=== PATIENT | female | born 2000 | race African-American/Black ===

== ENCOUNTER 2021-09-06 14:55 | Outpatient (REF) | payer MEDICAID, SELFPAY ==
[2021-09-07 14:21] LABS: CT PCR DETECTED (Not Detect.); NG PCR NOT DETECTED (Not Detect.)
[2021-09-08 10:00] LABS: BV Int Neg Control Negative (Negative); BV Int Pos Control Positive (Positive)
== END 2021-09-06 14:56 | disposition home or self-care (01) ==
LOC: HO.LAB 14:55
PROVIDERS: Visit Provider Advanced Practice Midwife
DX: Z01.419 Encounter for gynecological examination (general) (routine) without abnormal findings (principal); Z20.2 Contact with and (suspected) exposure to infections with a predominantly sexual mode of transmission; Z98.51 Tubal ligation status
CPT/HCPCS: 87480; 87491; 87510; 87591; 87660; 88142

== ENCOUNTER 2023-01-25 09:26 | Emergency (ER) | payer MEDICAID, SELFPAY ==
--- NOTE | ~2023-01-25 | XR_ITS ---
EXAMINATION: XR SHOULDER, RIGHT CLINICAL INFORMATION: Right shoulder pain. COMPARISON: None available. TECHNIQUE: AP external rotation, Grashey, scapular Y, and axillary views of the right shoulder. FINDINGS: Glenohumeral and acromioclavicular alignment is anatomic with normal joint space. No displaced fracture or dislocation. No abnormal soft tissue calcifications. XR/XR shoulder RT min 2V IMPRESSION: No acute abnormality.
[2023-01-25 10:08] VITALS: BP 102/69; PULSE 51; RESP 18; TEMP 35.9; O2SAT 100; BMI 24.2
--- NOTE | 2023-01-25 11:33 | ED.EXTPRO ---
HPI - Extremity Problem General Chief complaint: Extremity Injury, Upper Stated complaint: body aches all over back pain Time Seen by Provider: 01/25/23 11:30 Source: patient Limitations: no limitations History of Present Illness HPI Narrative: Patient presents ER complaining of atraumatic right shoulder pain. Patient states she does a lot of repetitive work at her job. Pain is located the anterior aspect of the right shoulder 8 increases with range of motion and palpation. Patient denies any recent blunt trauma or falls. Symptoms mild to moderate. No other complaints at this time. Patient denies chest pain shortness of breath fever chills Related Data Previous Rx's Medication Instructions Recorded azithromycin 500 mg tablet 1,000 mg PO ONCE 0 days #2 tabs 09/08/21 metronidazole 500 mg tablet 500 mg PO BID 7 days #14 tabs 09/16/21 ibuprofen 600 mg tablet 600 mg PO TID PRN pain #20 tabs 01/25/23 methocarbamol 750 mg tablet 750 mg PO TID PRN muscle spasm #10 01/25/23 tabs Allergies Allergy/AdvReac Type Severity Reaction Status Date / Time No Known Allergies Allergy Verified 09/06/21 15:13 Review of Systems Review of Systems: General: No fever, no chills Cardiovascular: No chest pain Respiratory: No dyspnea Muscle skeletal: Right shoulder pain GI: no nausea vomiting, no diarrhea Skin: No rash, no ecchymosis Immunology: No immunocompromised Hematology: No bleeding, no bruising PMFSH Past Medical History Attestation statement: The following information was validated with the patient. Surgical History History of bilateral tubal ligation Social History Social History Alcohol intake: never Patient Tobacco Use Status: Never used Tobacco Advance Directives: No Gender identity: Female Physical Exam Vital Signs: Vital Signs: Last Vital Signs Temp 96.7 F L 01/25/23 10:08 Pulse 51 01/25/23 10:08 Resp 18 01/25/23 10:08 BP 102/69 01/25/23 10:08 Pulse Ox 100 01/25/23 10:08 BMI result Body Mass Index 24.2 General appearance: Awake, alert, cooperative, in no acute distress Skin: Warm, dry, no rash Eyes: PERRL, EOMI, no icterus ENT: Oropharynx normal, uvula midline Neck: Soft supple full range of motion Extremities: Right shoulder acromioclavicular joint tenderness no crepitus pain increases with range of motion negative can test on the right. Neuro: Alert oriented x3, no focal deficit Psych: Normal affect Course Course Course Narrative: Right shoulder sprain Overuse injury right shoulder Acromioclavicular arthritis Rotator cuff injury 22-year-old female atraumatic right shoulder pain works a job with a lot of repetitive actions with the right upper extremity. X-ray pending of the right shoulder symptoms likely consistent with right shoulder strain/overuse injury. On exam low suspicion for underlying rotator cuff injury 11:30 x-rays negative for acute injuries symptoms consistent with right shoulder sprain/overuse injury Medical Decision Making Radiology Impression Discussion of test interpretation with radiology: I have reviewed the radiologist's reading. Radiologist Impression: [address] [id number] ReportSigned Patient: Izabela Pandya#: [id number]: 2000Acct:[id number]/Sex: 22 / FADM Date: 01/25/23Loc: HO.EDAttending Dr: Ordering Physician: Generic ED Physician Date of Service: 01/25/23 Procedure(s): XR shoulder RT min 2V Accession Number(s): [id number] cc: Generic ED Physician~ EXAMINATION: XR SHOULDER, RIGHT CLINICAL INFORMATION: Right shoulder pain. COMPARISON: None available. TECHNIQUE: AP external rotation, Grashey, scapular Y, and axillary views of the right shoulder. FINDINGS: Glenohumeral and acromioclavicular alignment is anatomic with normal joint space. No displaced fracture or dislocation. No abnormal soft tissue calcifications. XR/XR shoulder RT min 2V IMPRESSION: No acute abnormality. Dictated By:Charo Soares MDSigned By:<Electronically signed by Charo Soares MD in OV>01/25/23 1125 DD/ [id number]/TT: Payroll Accounting Manager: Discharge Plan Discharge Clinical Impression: Right shoulder strain Patient Disposition: Home, Self-Care Instructions: Muscle Strain (ED) Additional Instructions: X-rays negative for acute findings on your right shoulder. Rest ice elevation Medications as directed Prescriptions: New ibuprofen 600 mg tablet 600 mg PO TID PRN (Reason: pain) Qty: 20 0RF methocarbamol 750 mg tablet 750 mg PO TID PRN (Reason: muscle spasm) Qty: 10 0RF No Action azithromycin 500 mg tablet 1,000 mg PO ONCE Qty: 2 0RF metronidazole 500 mg tablet 500 mg PO BID 7 Days Qty: 14 0RF Stand Alone Forms: Work/School Release Print Language: Croatian
== END 2023-01-25 11:45 | disposition home or self-care (01) ==
PROVIDERS: Emergency Provider Emergency Medicine
DX: S46.911A Strain of unspecified muscle, fascia and tendon at shoulder and upper arm level, right arm, initial encounter (principal); M25.511 Pain in right shoulder; X58.XXXA Exposure to other specified factors, initial encounter; Y93.9 Activity, unspecified; Y92.9 Unspecified place or not applicable; Y99.9 Unspecified external cause status; Z79.899 Other long term (current) drug therapy
CPT/HCPCS: 73030; 99282; 99283

== ENCOUNTER 2023-04-23 08:58 | Emergency (ER) | payer OTHER, SELFPAY ==
--- NOTE | ~2023-04-23 | XR_ITS ---
EXAMINATION: XR SHOULDER, RIGHT CLINICAL INFORMATION: Pain COMPARISON: None available. TECHNIQUE: AP external rotation, Grashey, scapular Y, and axillary views of the right shoulder. FINDINGS: The bones and soft tissues are normal. No fracture. Glenohumeral and acromioclavicular alignment is anatomic with normal joint space. No abnormal soft tissue calcifications. XR/XR shoulder RT min 2V IMPRESSION: Normal right shoulder.
[2023-04-23 09:04] VITALS: BP 113/73; PULSE 55; RESP 18; TEMP 36.7; O2SAT 99; BMI 23.4
--- NOTE | 2023-04-23 10:45 | PC.NURSE ---
pt not giving much information during triage- defer to provider exam for imaging
[2023-04-23 12:26] VITALS: BP 136/79; PULSE 50; RESP 16; TEMP 37.1; O2SAT 100
--- NOTE | 2023-04-23 12:38 | ED_ITS ---
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 Pain is worse with movement better at rest. Denies numbness, tingling, no previous issues with right shoulder, no blunt trauma. No fevers or chills. Related Data Previous Rx's Medication Instructions Recorded azithromycin 500 mg tablet 1,000 mg (2 x 500 mg) PO ONCE 0 09/08/21 days #2 tabs metronidazole 500 mg tablet 500 mg PO BID 7 days #14 tabs 09/16/21 ibuprofen 600 mg tablet 600 mg PO TID PRN pain #20 tabs 01/25/23 methocarbamol 750 mg tablet 750 mg PO TID PRN muscle spasm #10 01/25/23 tabs ketorolac 10 mg tablet 10 mg PO TID PRN pain 5 days #15 04/23/23 tabs lidocaine 5 % topical patch 1 patch topical DAILY PRN pain #15 04/23/23 ea prednisone 20 mg tablet 40 mg (2 x 20 mg) PO DAILY 5 days 04/23/23 #10 tabs Allergies Allergy/AdvReac Type Severity Reaction Status Date / Time No Known Allergies Allergy Verified 09/06/21 15:13 Review of Systems Review of Systems: Constitutional : No Weight loss, No Fever, No Chills, No Fatigue, No Malaise ENT/Mouth : No sore throat, No Rhinorrhea Eyes: No Eye Pain, No Swelling, No Redness Cardiovascular : No Chest Pain, No SOB, No Dyspnea on Exertion, No Orthopnea, No Edema, No Palpitations Respiratory : No Cough, No Sputum, No Wheezing Gastrointestinal : No Nausea, No Vomiting, No Diarrhea, No Constipation, No abdominal Pain, No Hematochezia, No Melena Genitourinary : No Dysuria, No Urinary Frequency, No Hematuria, Musculoskeletal : + joint pain, No Myalgias, No Joint Swelling Skin : No Skin Lesions, No rash Neuro : No Weakness, No Numbness, No Dizziness, No Headache Psych : No Anxiety/Panic, No Depression All other systems reviewed and are negative Yes all other systems are reviewed and are negative [facility] Past Medical History Attestation statement: The following information was validated with the patient. Source: old records reviewed and nursing notes reviewed Surgical History History of bilateral tubal ligation Social History Social History Alcohol intake: never Patient Tobacco Use Status: Never used Tobacco Advance Directives: No Advance Directives Information Provided: Yes Gender identity: Female Physical Exam Vital Signs: Vital Signs: Last Vital Signs Temp 98.7 F 04/23/23 12:26 Pulse 50 04/23/23 12:26 Resp 16 04/23/23 12:26 BP 136/79 04/23/23 12:26 Pulse Ox 100 04/23/23 12:26 O2 Del Method Room Air 04/23/23 12:26 BMI result Body Mass Index 23.4 vss Appearance: Alert.? Oriented X3.? No acute distress.? Head: Normocephalic, atraumatic, no step-offs or deformities Eyes: Pupils equal, round and reactive to light.? CVS: Normal heart rate and rhythm.? Pulses normal.? Respiratory: No respiratory distress.? Breath sounds normal.? Skin: Skin warm and dry.? Normal skin color.? Normal skin turgor.? Extremities: No lower extremity edema.? No calf ttp. 5/5 strength to bilateral upper and lower extremities 2+ radial pulses equal and b/l, no wrist drop, cap refil intact, no ttp to trapezius b/l or cervical paraspinous muscles, no steo pofs or deformities, no overlying skin changes. Neuro: Oriented X 3.? No motor deficit.? No sensory deficit. CN 2-12 intact Course Reevaluation(s) Reevaluation #1: x-rays pending. Patient will appearing will call her of results or atypical/abnormal. Will have her follow-up with the orthopedic team. Educated patient on diagnosis and treatment plan, answered all question, patient verbalizes understanding. At this time patient will be discharged home, advised to return with new or worsening symptoms. Educated on worrisome signs and symptoms and when to return. At this time I feel comfortable discharge home. Time: 13:23 Medications Administered Discontinued Medications Generic Name Dose Route Start Last Admin Trade Name Freq PRN Reason Stop Dose Admin Ketorolac Tromethamine 30 mg 04/23/23 12:32 04/23/23 12:58 Ketorolac Tromethamine 15 Mg/Ml Vial IM 04/23/23 12:33 30 mg ONCE ONE Administration Lidocaine 1 patch 04/23/23 12:32 04/23/23 12:57 Lidocaine 4 % Patch Adh..Patch TRANSDERMA 04/23/23 12:33 1 patch ONCE ONE Administration Protocol Medical Decision Making Medical Decision Making [facility] Narrative: 1242 23 year old female presents w/ r shoulder pain No lower extremity edema.? No calf ttp. 5/5 strength to bilateral upper and lower extremities 2+ radial pulses equal and b/l, no wrist drop, cap refil intact, no ttp to trapezius b/l or cervical paraspinous muscles, no steopofs or deformities, no overlying skin changes. likely overuse injury vs tendinitis vs inflamtory arthritis vs bursitis. Unlikley septic joint, nv compromise, threat to limb. Plan- toradol, lidoderm, xray. Ortho follow up. Educated patient on diagnosis and treatment plan, answered all question, patient verbalizes understanding. At this time patient will be discharged home, advised to return with new or worsening symptoms. Educated on worrisome signs and symptoms and when to return. At this time I feel comfortable discharge home. Differential Diagnosis Differential Diagnoses: The differential diagnosis associated with the presentation includes likely overuse injury vs tendinitis vs inflamtory arthritis vs bursitis. Unlikley septic joint, nv compromise, threat to limb. Admission/Observation Consideration of admission/observation: Escalation of care including admission/observation considered unlikely Independent Interpretation I performed an independent interpretation of an: Plain X-Ray Radiology Impression Discussion of test interpretation with radiology: I have reviewed the radiologist's reading. Prescription Management I considered prescription management with: Pain Medication Critical Care Time Critical Care Time Critical Care Time: No Discharge Plan Discharge Clinical Impression: Left shoulder pain Patient Disposition: Home, Self-Care Instructions: Shoulder Pain (ED) Additional Instructions: Take your medications as prescribed. If you were prescribed antibiotics today, it is important that you take your medication to their entirety, do not skip any doses, do not finish them early. Follow-up with your primary care provider this week. Return to the emergency department with new or worsening symptoms. Such as fevers, chills, chest pain, shortness of breath, nausea, vomiting, dizziness, headache, vision changes, lethargy In case of emergency call 911 Prescriptions: New prednisone 20 mg tablet 40 mg PO DAILY 5 Days Qty: 10 0RF ketorolac 10 mg tablet 10 mg PO TID PRN (Reason: pain) 5 Days Qty: 15 0RF lidocaine 5 % adhesive patch,medicated 1 patch topical DAILY PRN (Reason: pain) Qty: 15 0RF Rx Instructions: leave on most painful area for up to 12 hrs No Action azithromycin 500 mg tablet 1,000 mg PO ONCE Qty: 2 0RF metronidazole 500 mg tablet 500 mg PO BID 7 Days Qty: 14 0RF ibuprofen 600 mg tablet 600 mg PO TID PRN (Reason: pain) Qty: 20 0RF methocarbamol 750 mg tablet 750 mg PO TID PRN (Reason: muscle spasm) Qty: 10 0RF Referrals: [facility] [Provider Group] - 2 days Physician,Unknown J [Primary Care Provider] - 2 days Stand Alone Forms: Work/School Release
[2023-04-23] MEDS: Lidocaine 4 % Patch ADH..PATCH 1 PATCH TRANSDERMA (12:57)
[2023-04-23] MEDS: Ketorolac Tromethamine 15 MG/ML VIAL 30 MG IM (12:58)
== END 2023-04-23 13:41 | disposition home or self-care (01) ==
PROVIDERS: Emergency Provider Student in an Organized Health Care Education/Training Program
DX: M25.512 Pain in left shoulder (principal); M54.50 Low back pain, unspecified; Z79.899 Other long term (current) drug therapy
CPT/HCPCS: 73030; 96372; 99283; 99284; J1885

== ENCOUNTER 2023-07-10 10:26 | Emergency (ER) | payer OTHER, SELFPAY ==
--- NOTE | ~2023-07-10 | XR_ITS ---
EXAMINATION: XR FOOT, LEFT CLINICAL INFORMATION: Pain. Concern for osteomyelitis. COMPARISON: None available. TECHNIQUE: AP, lateral, and oblique views of the left foot. FINDINGS: The bones and soft tissues are normal. No fracture. Alignment is anatomic. Joint spaces are maintained. XR/XR foot LT min 3V IMPRESSION: No significant abnormality identified.
[2023-07-10 10:29] VITALS: BP 119/37; PULSE 68; RESP 16; TEMP 36.3; O2SAT 100; BMI 34.6
--- NOTE | 2023-07-10 12:50 | ED_ITS ---
HPI - Extremity Problem General Chief complaint: Extremity Problem Stated complaint: L Pinky Toe Discoloration Time Seen by Provider: 07/10/23 11:14 Source: patient and ob gyn Mode of arrival: ambulatory Limitations: language barrier History of Present Illness HPI Narrative: Patient is a 23-year-old Turkmen-speaking female presenting emergency department with complaint of left 5th toe pain since Sunday. She denies any fall or other injury. Has not used any [id number] medications for her symptoms. Denies any numbness or tingling. Denies fevers. Denies any discharge or drainage from area. MD Complaint: extremity pain Onset (ago): day(s) Pain Consistency: constant Location: left and lower extremity Quality: aching Radiation: none Exacerbating factors: walking and palpation Associated symptoms: denies other symptoms Related Data Previous Rx's Medication Instructions Recorded azithromycin 500 mg tablet 1,000 mg (2 x 500 mg) PO ONCE 0 09/08/21 days #2 tabs metronidazole 500 mg tablet 500 mg PO BID 7 days #14 tabs 09/16/21 ibuprofen 600 mg tablet 600 mg PO TID PRN pain #20 tabs 01/25/23 methocarbamol 750 mg tablet 750 mg PO TID PRN muscle spasm #10 01/25/23 tabs ketorolac 10 mg tablet 10 mg PO TID PRN pain 5 days #15 04/23/23 tabs lidocaine 5 % topical patch 1 patch topical DAILY PRN pain #15 04/23/23 ea prednisone 20 mg tablet 40 mg (2 x 20 mg) PO DAILY 5 days 04/23/23 #10 tabs doxycycline hyclate 100 mg tablet 100 mg PO BID #20 tabs 07/10/23 Allergies Allergy/AdvReac Type Severity Reaction Status Date / Time No Known Allergies Allergy Verified 09/06/21 15:13 Review of Systems Review of Systems: As per HPI. Yes all other systems are reviewed and are negative Constitutional: Constitutional: Reports as per HPI PMF Past Medical History Surgical History History of bilateral tubal ligation Social History Social History Alcohol intake: never Patient Tobacco Use Status: Never used Tobacco Advance Directives: No Gender identity: Female Physical Exam Vital Signs: Vital Signs: Last Vital Signs Temp 98.4 F 07/10/23 13:22 Pulse 52 07/10/23 13:22 Resp 16 07/10/23 13:22 BP 119/65 07/10/23 13:22 Pulse Ox 100 07/10/23 13:22 O2 Del Method Room Air 07/10/23 13:22 BMI result Body Mass Index 34.6 Vital signs have been reviewed and appear to be correct. Blood pressure normal. Heart rate normal. Respiratory rate normal. Temperature normal. Oxygen saturation normal. Const: General: cooperative, healthy appearing and no acute distress Orientation/consciousness: oriented to person, oriented to place, oriented to ti me and patient oriented x3 Limitations: no limitations HEENT: Head: Yes normocephalic and Yes atraumatic Ears: external ears normal General nose exam: Normal external nose present Face and sinus: Yes face symmetric Mouth: oropharynx normal and moist mucous membranes Throat: Yes uvula midline Eyes: Pupils: Equal, round and reactive pupils present Neck: Neck: Yes normal visual inspection and Yes supple Resp: Effort & Inspection: normal respiratory effort and able to speak in complete sentences Auscultation: clear to auscultation bilaterally Cardio: Rate: regular rate Rhythm: regular rhythm Heart sounds: S1 normal heart sound present and S2 normal heart sound present GI: Palpation (GI): Soft to palpation and nontender Auscultation: normoactive bowel sounds : General: Yes no CVA tenderness Back/Spine/Pelvis: Back: no CVA tenderness Skin: General skin exam: elasticity normal and turgor normal Neuro: General: oriented to person, oriented to place, oriented to time, patient oriented x3, moves all extremities, no focal motor deficits and CN's II- XI intact bilaterally Cranial nerves: Yes Equal, round and reactive pupils present Cognition (Neuro): normal cognition Extrem: General: Yes full ROM, Yes no pedal edema and Yes no calf tenderness Left lower extremity: foot Details: normal capillary refill, abnormal to inspection (Purulent drainage between 4th and 5th toes, minimal erythema, no warmth), tenderness Location: of another digit (between 4th/5th toes) Location: the 4th digit and the 5th digit, toes with normal ROM and vascular exam Details: dorsalis pedis pulse present and posterior tibial pulse present; no unusual warmth, edema noted and no puncture wound (No visible puncture wound) Psych: Mental Status: mental status grossly normal Affect: normal affect Thought process: Normal thought process present Medical Decision Making Medical Decision Making [facility] Narrative: Patient is a 23-year-old Turkmen-speaking female presenting emergency department with complaint of left 5th toe pain since Sunday. On exam patient is awake, A+Ox3, VS WNL, afebrile, normal neurological exam without focal deficits, physical exam findings as above. Given reported symptoms and physical exam findings, initial differential includes tinea infection, cellulitis, osteomyelitis. 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 Discussed with patient risks of leaving prior to full evaluation up to including , patient verbalized understanding of this and states she still wishes to leave the department. Will prescribe doxycycline b.i.d. for 10 days for cellulitis of left foot, advised patient to soak foot in warm salt water several times daily. Return precautions discussed. Advised patient she can return to the emergency department at any time. Patient verbalized understanding of and agreement with plan to leave against medical advice. Differential Diagnosis Differential Diagnoses: The differential diagnosis associated with the presentation includes As per [facility] External Record Review External record reviewed: Inpatient record, Office record and Outpatient record Prescription Management I considered prescription management with: Antibiotic Discharge Plan Discharge Clinical Impression: Cellulitis of foot Patient Disposition: Left Against Medical Advice Instructions: Cellulitis (DC) Additional Instructions: Usted carrera sido evaluado hoy en el departamento de emergencias por ari infecci?n de la piel, tambi?n conocida nickolas celulitis. [place] los antibi?ticos recetados seg?n las indicaciones zonia todo el tratamiento. Tambi?n debes remojar el pie en agua tibia con [place] zonia 10 a 15 minutos varias veces al d?a. Puede usar Tylenol o ibuprofeno seg?n las instrucciones del paquete cada 6 horas seg?n sea necesario para el dolor. Si es necesario, puedes alternar estos medicamentos para poder wilfredo un medicamento cada 3 horas. Por ejemplo, al mediod?a ginger ibuprofeno y luego a las 15:00 horas. tome Tylenol, luego a las 6:00 p.m. wilfredo ibuprofeno. Programe ari yokasta de seguimiento con luke m?dico de atenci?n primaria lo antes posible. Regrese al departamento de emergencias si experimenta v?mitos recurrentes, fiebre superior a 100.4 ?F, aumento del enrojecimiento del ?malu, calor alrededor del ?malu, secreci?n maloliente del ?malu, aumento de la sensibilidad alrededor del ?malu o cualquier otro s?ntoma preocupante. Prescriptions: New doxycycline hyclate 100 mg tablet 100 mg PO BID Qty: 20 0RF No Action azithromycin 500 mg tablet 1,000 mg PO ONCE Qty: 2 0RF metronidazole 500 mg tablet 500 mg PO BID 7 Days Qty: 14 0RF prednisone 20 mg tablet 40 mg PO DAILY 5 Days Qty: 10 0RF ketorolac 10 mg tablet 10 mg PO TID PRN (Reason: pain) 5 Days Qty: 15 0RF lidocaine 5 % adhesive patch,medicated 1 patch topical DAILY PRN (Reason: pain) Qty: 15 0RF Rx Instructions: leave on most painful area for up to 12 hrs ibuprofen 600 mg tablet 600 mg PO TID PRN (Reason: pain) Qty: 20 0RF methocarbamol 750 mg tablet 750 mg PO TID PRN (Reason: muscle spasm) Qty: 10 0RF Stand Alone Forms: Against Medical Advice
[2023-07-10 13:22] VITALS: BP 119/65; PULSE 52; RESP 16; TEMP 36.9; O2SAT 100
--- NOTE | 2023-07-10 14:07 | PC.NURSE ---
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 This nurse went to print her discharge/ama papers upon returning to the room the patient was getting her xray taken. After xray was completed pt requested to still discharge. Pt then asked for a work note which was declined due to her AMA status.
== END 2023-07-10 14:16 | disposition left against medical advice (07) ==
PROVIDERS: Emergency Provider Emergency Medicine
DX: L03.116 Cellulitis of left lower limb (principal); M79.675 Pain in left toe(s)
CPT/HCPCS: 73630; 99282; 99283

== ENCOUNTER 2025-01-27 19:39 | Emergency (ER) | payer OTHER, SELFPAY ==
--- NOTE | ~2025-01-27 | XR_ITS ---
CLINICAL HISTORY: trauma,pain 4 view left shoulder Comparison: None provided Findings: Bones intact. No dislocations. No significant loss of joint space or osteophytes. No erosions. No radiopaque foreign body. IMPRESSION: 1. No acute findings This document has been electronically signed by: Austin Garcia MD on 01/27/2025 20:46:50
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
[2025-01-27 20:18] VITALS: BP 132/80; PULSE 53; RESP 18; TEMP 36.8; O2SAT 99; BMI 26.6
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
== END 2025-01-27 22:28 | disposition home or self-care (01) ==
LOC: HO.ED 22:02
PROVIDERS: Emergency Provider Emergency Medicine
DX: S13.4XXA Sprain of ligaments of cervical spine, initial encounter (principal); S43.402A Unspecified sprain of left shoulder joint, initial encounter; V43.52XA Car driver injured in collision with other type car in traffic accident, initial encounter; R51.9 Headache, unspecified; M54.2 Cervicalgia; Y93.89 Activity, other specified; Y92.414 Local residential or business street as the place of occurrence of the external cause; Y99.9 Unspecified external cause status
CPT/HCPCS: 70450; 72125; 73030; 99281; 99284

== ENCOUNTER → 2025-01-27 20:21 | Outpatient (BNV) | payer OTHER, SELFPAY | PROVIDERS: Visit Provider Student in an Organized Health Care Education/Training Program | DX: G89.11 Acute pain due to trauma (principal); G44.309 Post-traumatic headache, unspecified, not intractable; M25.512 Pain in left shoulder | CPT/HCPCS: 70450; 72125; 73030 ==